=== PATIENT | male | born 1980 | race Caucasian/White ===

== ENCOUNTER 2022-05-09 11:32 | Emergency (ER) | payer OTHER ==
[~2022-05-09 11:32] MED LIST: COZAAR 25MG TAB25 MG PO; FLEXERIL10 MG PO; IBUPROFEN800 MG PO; LOPRESSOR25 MG PO
[2022-05-09 13:03] LABS: BASOPHIL 0.5 % (0-2); EOSINOPHIL 0.7 % (0-5); HCT 44.2 % (42.0-52.0); HGB 15.3 g/dl (13.2-18.0); LYMPHOCYTE 9.7 % (15-48); MCH 30.2 pg (25.0-31.0); MCHC 34.6 g/dL (32.0-36.0); MCV 87.4 fL (78.0-100.0); MONOCYTE 7.4 % (0-12); MPV 10.7 fL (6.0-9.5); NEUTROPHIL 81.3 % (41-80); NRBC 0; PLT 258 K/uL (150-400); RBC 5.06 M/uL (4.70-6.00); RDW 12.4 % (11.5-14.0); WBC 16.3 K/uL (4.0-10.5)
[2022-05-09 13:22] LABS: BILIRUBIN NEGATIVE (NEGATIVE); BLOOD NEGATIVE Ery/uL (NEGATIVE); CLARITY CLEAR (CLEAR); COLOR YELLOW (YELLOW); GLUCOSE (U) NORMAL (NORMAL); LEUKOCYTES NEGATIVE Leu/uL (NEGATIVE); NITRITE NEGATIVE (NEGATIVE); PROTEIN NEGATIVE (NEGATIVE); SPECIFIC GRAVITY 1.025 (1.001-1.030); UROBILINOGEN 0.2 mg/dL (0.2-1.0)
[2022-05-09 13:48] LABS: LACTIC ACID 2.7 mmol/L (0.4-1.9)
[2022-05-09 14:36] LABS: ALBUMIN 3.8 g/dL (3.4-5.0); BILIRUBIN - TOTAL 0.4 mg/dL (0.2-1.0); CREATININE 0.8 mg/dL (0.67-1.17); GLOBULIN (CALCULATION) 4.1 g/dL; POTASSIUM 4.4 mmol/L (3.5-5.1); TOTAL PROTEIN 7.9 g/dL (6.4-8.2)
[2022-05-09] MEDS ORDERED: ONDANSETRON HCL4 MG PO (17:20)
[2022-05-09] MEDS ORDERED: BENTYL10 MG PO (17:20)
[2022-05-09] MEDS ORDERED: NORCO 5-325 TA1 EACH PO (17:20)
[2022-05-09] MEDS ORDERED: CIPRO500 MG PO (17:20)
[2022-05-09] MEDS ORDERED: METRONIDAZOLE500 MG PO (17:20)
== END 2022-05-09 17:39 | disposition home or self-care (01) ==
LOC: FER 11:32
PROVIDERS: Nurse Practitioner Family
DX: K57.92 Diverticulitis of intestine, part unspecified, without perforation or abscess without bleeding (principal); I10 Essential (primary) hypertension; E11.9 Type 2 diabetes mellitus without complications; Z79.84 Long term (current) use of oral hypoglycemic drugs; Z79.899 Other long term (current) drug therapy
CPT/HCPCS: 36415; 80053; 81003; 82150; 83605; 83690; 84145; 85025; 87040; J1170; J1885; J2405; J2543; J7030